=== PATIENT | male | born 2000 | race Two or more races ===

== ENCOUNTER 2019-12-23 10:38 | Emergency (ER) | payer SELFPAY ==
--- NOTE | 2019-12-23 10:55 | ER Document Report ---
ED Medical Screen (RME) - General Chief Complaint: Chest Pain Stated Complaint: CHEST PAIN Time Seen by Provider: 12/23/19 10:48 - HPI Notes: 12/23/19 10:53 19-year-old male presents to the emergency room via private car for complaints of intermittent chest pain and palpitations for the last month. He is unsure if this is related to panic attacks or if there is "something wrong with my heart". 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 He is a smoker. Denies any previous cardiac history. Has not been evaluated by a provider for this issue. 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 Denies any shortness of breath. No fevers or chills. I have greeted and performed a rapid initial assessment of this patient. A comprehensive ED assessment and evaluation of the patient, analysis of test results and completion of the medical decision making process will be conducted by additional ED providers. PHYSICAL EXAMINATION: GENERAL: Well-appearing, well-nourished and in no acute distress. HEAD: Atraumatic, normocephalic. NECK: Normal range of motion CV: s1, s2 regular LUNGS: No respiratory distress NEUROLOGICAL: Normal speech, normal gait. SKIN: Warm, Dry, normal turgor, no rashes or lesions noted. - Related Data Allergies/Adverse Reactions: No Known Allergies Allergy (Verified 12/23/19 10:48) Past Medical History - Social History Frequency of alcohol use: None Drug Abuse: Other
--- NOTE | 2019-12-23 11:05 | ER Document Report ---
ED Cardiac - General Chief Complaint: Chest Pain Stated Complaint: CHEST PAIN Time Seen by Provider: 12/23/19 10:48 Notes: CHIEF COMPLAINT: Intermittent heart racing sensation HPI: 19-year-old male presenting to the emergency department complaining of 1 month of daily episodes of feeling like his heart is racing quickly. Has not seen a primary provider in the last month for evaluation of this issue. States it may last 20 to 30 minutes when it comes on he does develop some chest discomfort and shortness of breath with it that goes away. Has not noticed any particular triggers. No family history of arrhythmias that he is aware of. S tates it happened again this morning prompting his visit to the emergency department denies discomfort currently ROS: See HPI - all other systems were reviewed and are otherwise negative Constitutional: no fever Eyes: no drainage, no blurred vision ENT: no runny nose, no sore throat Cardiovascular: no chest pain currently Resp: no SOB, no cough GI: no vomiting, no diarrhea, no abdominal pain : no dysuria Integumentary: no rash Allergy: no hives Musculoskeletal: no extremity pain or swelling Neurological: no numbness/tingling, no weakness MEDICATIONS: I agree with the patient medications as charted by the RN. ALLERGIES: I agree with the allergies as charted by the RN. PAST MEDICAL HISTORY/PAST SURGICAL HISTORY: Reviewed and agree as charted by RN. SOCIAL HISTORY: Reviewed and agree as charted by RN. FAMILY HISTORY: No significant familial comorbid conditions directly related to patient complaint EXAM: Reviewed vital signs as charted by RN. CONSTITUTIONAL: Alert and oriented and responds appropriately to questions. Well-appearing; well-nourished HEAD: Normocephalic; atraumatic EYES: PERRL; Conjunctivae clear, sclerae non-icteric ENT: normal nose; no rhinorrhea; moist mucous membranes; pharynx without lesions noted, no uvula edema or deviation, no tonsillar hypertrophy, phonation normal NECK: Supple without meningismus; non-tender; no cervical lymphadenopathy, no masses CARD: RRR; no murmurs, no clicks, no rubs, no gallops; symmetric distal pulses RESP: Normal chest excursion without splinting or tachypnea; breath sounds clear and equal bilaterally; no wheezes, no rhonchi, no rales, pulse oximetry 98% on room air not hypoxic ABD/GI: Normal bowel sounds; non-distended; soft, non-tender, no rebound, no guarding; no palpable organomegaly or masses. BACK: The back appears normal and is non-tender to palpation, there is no CVA tenderness EXT: Normal ROM in all joints; non-tender to palpation; no cyanosis, no effusions, no edema SKIN: Normal color for age and race; warm; dry; good turgor; no acute lesions noted NEURO: Moves all extremities equally; Motor and sensory function intact PSYCH: The patient's mood and manner are anxious. Grooming and personal hygiene are appropriate. MDM: 19-year-old male with episodes of a sensation of his heart beating quickly. Not currently symptomatic. Initial lab work via triage process. Patient does report a prior history of cocaine use but states he is not using drugs other than marijuana at this time. - Related Data Allergies/Adverse Reactions: No Known Allergies Allergy (Verified 12/23/19 10:48) Past Medical History - Social History Smoking Status: Current Every Day Smoker Frequency of alcohol use: None Drug Abuse: Other Family History: Reviewed & Not Pertinent Patient has suicidal ideation: No Patient has homicidal ideation: No Physical Exam - Vital signs Vitals: Temp Pulse Resp BP Pulse Ox 98.1 F 73 16 121/77 100 12/23/19 10:46 12/23/19 10:46 12/23/19 10:46 12/23/19 10:46 12/23/19 10:46 Course - Re-evaluation Re-evalutation: 12/23/19 12:51 Lab work is negative for acute findings. Will refer to cardiology for outpatient evaluation of symptoms. Patient may be having runs of SVT or other arrhythmias. He had no symptoms while in the emergency department - Vital Signs Vital signs: Temp Pulse Resp BP Pulse Ox 98.1 F 73 16 121/77 100 12/23/19 10:46 12/23/19 10:46 12/23/19 10:46 12/23/19 10:46 12/23/19 10:46 - Laboratory Result Diagrams: 12/23/19 11:22 12/23/19 11:22 Laboratory results interpreted by me: 12/23/19 12/23/19 11:22 11:22 RDW 16.0 H Glucose 66 L Discharge - Discharge Clinical Impression: Palpitations Condition: Stable Disposition: HOME, SELF-CARE Additional Instructions: Your lab work today did not show any acute abnormalities. Your EKG and chest x- ray were normal. This does not rule out an arrhythmia or irregularity of your heartbeat, follow-up closely with cardiology for further evaluation and management call for appointment Referrals: ROSA ORTIZ MD [ACTIVE PROVISIONAL STAFF] - Follow up as needed
[2019-12-23 11:43] LABS: ABSOLUTE BASOPHILS # (AUTO) 0.1 10^3/uL (0.0-0.2); ABSOLUTE EOSINOPHILS # (AUTO) 0.1 10^3/uL (0.0-0.6); ABSOLUTE LYMPHOCYTES (AUTO) 2.2 10^3/uL (0.5-4.7); ABSOLUTE MONOCYTES (AUTO) 0.6 10^3/uL (0.1-1.4); ABSOLUTE NEUT (AUTO) 3.6 10^3/uL (1.7-8.2); BASOPHILS % (AUTO) 0.8 % (0-2); HEMATOCRIT 47.1 % (37.9-51.0); HEMOGLOBIN 16.4 g/dL (13.5-17.0); LYMPHOCYTES % (AUTO) 33.3 % (13-45); MEAN CORPUSCULAR HEMOGLOBIN 32.4 pg (27.0-33.4); MEAN CORPUSCULAR HGB CONC 34.8 g/dL (32.0-36.0); MEAN CORPUSCULAR VOLUME 93 fl (80-97); MONOCYTES % (AUTO) 8.6 % (3-13); PLATELET COUNT 266 10^3/uL (150-450); RED BLOOD COUNT 5.07 10^6/uL (4.35-5.55); SEGMENTED NEUTROPHILS % (AUTO) 56.3 % (42-78); TOTAL CELLS COUNTED % (AUTO) 100 %; WHITE BLOOD COUNT 6.5 10^3/uL (4.0-10.5)
[2019-12-23 12:00] LABS: ALBUMIN 4.8 g/dL (3.5-5.0); ALKALINE PHOSPHATASE 99 U/L (38-126); ANION GAP 8 (5-19); ASPARTATE AMINO TRANSFERASE 24 U/L (17-59); BILIRUBIN,DIRECT 0.2 mg/dL (0.0-0.4); BILIRUBIN,TOTAL 0.9 mg/dL (0.2-1.3); BLOOD UREA NITROGEN 10 mg/dL (7-20); CALCIUM 9.9 mg/dL (8.4-10.2); CARBON DIOXIDE 28 mmol/L (22-30); CHLORIDE 101 mmol/L (98-107); POTASSIUM 4.2 mmol/L (3.6-5.0); TOTAL PROTEIN 8.2 g/dL (6.3-8.2)
--- NOTE | 2019-12-23 12:02 | RADIOLOGY REPORT (SQ) ---
EXAM DESCRIPTION: CHEST SINGLE VIEW IMAGES COMPLETED DATE/TIME: 12/23/2019 11:37 am REASON FOR STUDY: CP COMPARISON: None. FINDINGS: One view chest AP portable upright. Hyperinflated but clear lungs. Hyperinflation may simply be due to good inspiratory effort. Asthma is also in the differential. Normal cardiomediastinal silhouette. No pneumothorax or pleural effusi on. Intact bones. TECHNICAL DOCUMENTATION: JOB ID: [id number] Reading location - IP/workstation name: [email or web address]
[2019-12-23 12:03] LABS: GLUCOSE 66 mg/dL (75-110)
[2019-12-23 12:10] LABS: URINE AMPHETAMINES SCREEN NEGATIVE; URINE BARBITURATES SCREEN NEGATIVE; URINE BENZODIAZEPINES SCREEN NEGATIVE; URINE COCAINE SCREEN NEGATIVE; URINE METHADONE SCREEN NEGATIVE; URINE PHENCYCLIDINE SCREEN NEGATIVE
[2019-12-23 12:19] LABS: URINE MARIJUANA (THC) SCREEN UNCONFIRMED POSITIVE
[2019-12-23 13:12] VITALS: BP 141/78
--- NOTE | 2019-12-23 13:54 | EKG REPORT ---
SEVERITY:- OTHERWISE NORMAL ECG - SINUS RHYTHM NONSPECIFIC INTRAVENTRICULAR CONDUCTION DELAY : Confirmed by: Param Bridges MD 23-Dec-2019 13:53:52
== END 2019-12-23 13:11 | disposition home or self-care (01) ==
LOC: ER 10:38
DX: R00.2 Palpitations (principal); F17.200 Nicotine dependence, unspecified, uncomplicated; F19.10 Other psychoactive substance abuse, uncomplicated
CPT/HCPCS: 36415; 71045; 80053; 80307; 84443; 84484; 85025; 93005; 93010; 99285